=== PATIENT | male | born 1985 ===

== ENCOUNTER 2017-03-16 12:40 | Inpatient (IN) | payer BC ==
[2017-03-16 13:50] LABS: BASO # 0.1 K/uL (0.0-0.2); BASO % 0.9 % (0.0-2.0); EOS # 0.3 K/uL (0.0-0.7); EOS % 4.1 % (0.0-4.0); HEMATOCRIT 45.2 % (35.0-51.0); LYMPH # 1.1 K/uL (1.0-4.3); MEAN CELL VOLUME 89.3 fl (80.0-94.0); MEAN CORPUSCULAR HEMOGLOBIN 30.3 pg (27.0-31.0); MEAN PLATELET VOLUME 7.5 fl (7.2-11.7); MONO # 0.4 K/uL (0.0-0.8); MONO % 6.1 % (0.0-10.0); NEUT # 4.8 K/uL (1.8-7.0); NEUT % 72.9 % (50.0-75.0); RED CELL DISTRIBUTION WIDTH 12.6 % (11.5-14.5); WHITE BLOOD COUNT 6.6 K/uL (4.8-10.8)
[2017-03-16] MEDS ORDERED: Albuterol 0.083% Inhal Sol (2.5 mg/3 mL) UD INH STA (13:50)
[2017-03-16] MEDS ORDERED: Albuterol 0.083% Inhal Sol (2.5 mg/3 mL) UD ONE (13:55)
--- NOTE | 2017-03-16 13:56 | ED PDOC ---
HPI: SOB/CHF/COPD Time Seen by Provider: 03/16/17 12:59 Chief Complaint (Nursing): Shortness Of Breath History Per: Patient History/Exam Limitations: no limitations Onset/Duration Of Symptoms: Gradual (2 weeks), Worse Since (yesterday) Current Symptoms Are (Timing): Still Present Initiating Event: Upper Respiratory Illness Quality: Dull Severity: Moderate Associated Symptoms: Sweating (night sweats), Chest Pain, Bloody Cough (trace), Productive Cough (yellow). denies: Fever, Chills, Heart Racing, Leg/Calf Pain, Ankle/Leg Swelling, Dizziness, Light-headedness, Anxiety, Tingling In Hands Or Face, Other Recently: Treated By A Physician (sent to ed for eval) Additional History Per: Patient Additional Complaint(s): Pt sent by pmd for evaluation of sob, pt states has taken multiple flights across the [place] this month. Denies fever/chills. + productive cough yellow and red tinged. c/o throat/chest and upper back pain. approx 2 weeks ago received albuterol, steroids and antibiotics with no mild relieft. Past Medical History Reviewed: Historical Data, Nursing Documentation, Vital Signs Vital Signs: Last Vital Signs Temp 99.1 F 03/16/17 12:50 Pulse 95 H 03/16/17 12:50 Resp 18 03/16/17 13:11 BP 129/88 03/16/17 12:50 Pulse Ox 99 03/16/17 13:59 - Medical History PMH: Asthma, Bronchitis Denies: Chronic Kidney Disease - Family History Family History: States: Unknown Family Hx - Living Arrangements Living Arrangements: With Family - Social History Current smoker - smoking cessation education provided: No - Allergies Allergies/Adverse Reactions: Allergies Allergy/AdvReac Type Severity Reaction Status Date / Time No Known Allergies Allergy Verified 03/16/17 12:50 Wells Criteria for PE - Wells Criteria for Pulmonary Embolism Clinical Signs and Symptoms of DVT: No P.E is #1 Diagnosis, or Equally Likely: No Heart Rate >100: No Immobilization at least 3 days;Surgery previous 4 weeks: No Previous, objectively diagnosed PE or DVT: No Hemoptysis: Yes Malignancy w/treatment within 6 months, or palliative: No Total Score: 1 Review of Systems ROS Statement: Except As Marked, All Systems Reviewed And Found Negative Constitutional: Negative for: Fever, Chills Cardiovascular: Positive for: Chest Pain. Negative for: Palpitations, Edema, Light Headedness Respiratory: Positive for: Cough, Shortness of Breath, Hemoptysis, Wheezing. Negative for: Pleuritic Pain, Sputum Gastrointestinal: Negative for: Nausea, Vomiting, Abdominal Pain Neurological: Negative for: Weakness, Numbness Physical Exam - Reviewed Nursing Documentation Reviewed: Yes Vital Signs Reviewed: Yes - Physical Exam Appears: Positive for: Uncomfortable Head Exam: Positive for: ATRAUMATIC, NORMAL INSPECTION, NORMOCEPHALIC Eye Exam: Positive for: Normal appearance, EOMI, PERRL ENT: Positive for: Pharynx Is (clear,mmm) Neck: Positive for: Normal, Painless ROM, Supple Cardiovascular/Chest: Positive for: Regular Rate, Rhythm, Chest Non Tender. Negative for: Edema, Murmur, Bradycardia, Tachycardia Respiratory: Positive for: Decreased Breath Sounds (mild), Wheezing (mild scattered). Negative for: Accessory Muscle Use, Crackles, Rales, Rhonchi, Stridor, Respiratory Distress Gastrointestinal/Abdominal: Positive for: Normal Exam, Bowel Sounds, Soft. Negative for: Tenderness Back: Positive for: Normal Inspection Extremity: Positive for: Normal ROM. Negative for: Tenderness, Pedal Edema, Calf Tenderness, Deformity, Swelling Neurologic/Psych: Positive for: Alert, credit collector II-XII, Oriented, Mood/Affect (calm) . Negative for: Motor/Sensory Deficits - Laboratory Results Result Diagrams: 03/16/17 13:40 03/16/17 13:40 - ECG ECG: Positive for: Interpreted By [facility] ECG Rhythm: Positive for: Normal QRS, Normal ST Segment, Sinus Rhythm. Negative for: ST/T Changes Interpretation Of Abn EKG: rate of 81, no evidence of ischemia O2 Sat by Pulse Oximetry: 99 Pulse Ox Interpretation: Normal - Radiology X-Ray: Interpreted by [facility] X-Ray Interpretation: Infiltrates (small in lll) - Progress ED Course And Treament: seen by dr singh in the ed, will admit to med surg for clinical pna that failed outpt treatment. cta neg for pe given pt high clinical suspicion. will also r/o tb pt agree's with plan. Re-evaluation Time: 15:00 Condition: Improved Disposition - Clinical Impression Clinical Impression: Pneumonia - Patient ED Disposition Is Patient to be Admitted: Yes Counseled Patient/Family Regarding: Studies Performed, Diagnosis - Disposition Disposition Time: 15:00 Condition: GOOD Forms: [employer] (Malay) - Pt Status Changed To: Hospital Disposition Of: Inpatient - Admit Certification Admit to Inpatient:: After my assessment, the patient will require hospitalization for at least two midnights. This is because of the severity of symptoms shown, intensity of services needed, and/or the medical risk in this patient being treated as an outpatient. - POA Present On Arrival: None
[2017-03-16 14:01] LABS: ALB/GLOB RATIO 1.3 (1.0-2.1); ALKALINE PHOSPHATASE 56 U/L (38-126); ALT/SGPT 40 U/L (21-72); AST/SGOT 69 U/L (17-59); BILIRUBIN,TOTAL 0.7 mg/dl (0.2-1.3); BLOOD UREA NITROGEN 21 mg/dl (9-20); CALCIUM 10.2 mg/dL (8.4-10.2); CARBON DIOXIDE 30 mmol/L (22-30); CHLORIDE 98 mmol/L (98-107); GFR AFRICAN-AMERICAN > 60; GLUCOSE,RANDOM 102 mg/dL (75-110); SODIUM 140 mmol/l (132-148); TOTAL PROTEIN 8.7 G/DL (6.3-8.2)
[2017-03-16 14:08] LABS: PARTIAL THROMBOPLASTIN TIME 27.9 Seconds (25.6-37.1)
--- NOTE | 2017-03-16 14:26 | RAD ---
HISTORY: COMPARISON: No prior. TECHNIQUE: Chest PA and lateral FINDINGS: LINES AND TUBES: None. LUNG AND PLEURA: The lungs are well inflated. There is focal ill-defined airspace disease in the left lower lobe. HEART AND MEDIASTINUM: The heart is not enlarged. The hilar and mediastinal contours are within normal limits. SKELETAL STRUCTURES: The bony structures are within normal limits for the patient's age. VISUALIZED UPPER ABDOMEN: Normal. OTHER FINDINGS: None. IMPRESSION: Suspect left lower lobe pneumonia. Follow-up after medical management is recommended to ensure complete resolution.
[2017-03-16] MEDS ORDERED: Strong Iodine Topical Sol. 5%-10% PO STA (15:13)
--- NOTE | 2017-03-16 15:23 | CT ---
PROCEDURE: CT Chest with contrast (Pulmonary Angiogram) HISTORY: cp r/o pe COMPARISON: Chest radiographs 03/16/2017. TECHNIQUE: Axial computed tomography images were obtained of the chest in the pulmonary arterial phase of enhancement. Coronal and sagittal reformatted images were created and reviewed. Intravenous contrast dose: Omnipaque 300, 100 cc. Radiation dose: Total exam DLP = 429 mGy-cm. This CT exam was performed using one or more of the following dose reduction techniques: Automated exposure control, adjustment of the mA and/or kV according to patient size, and/or use of iterative reconstruction technique. FINDINGS: PULMONARY ARTERIES: Unremarkable. No pulmonary embolism. AORTA: No acute findings. No thoracic aortic aneurysm. LUNGS: Unremarkable. No nodule, mass or pulmonary consolidation. PLEURAL SPACES: Unremarkable. No effusion or pneuomothorax. HEART: Unremarkable. No cardiomegaly. No significant pericardial effusion. LYMPH NODES: No lymphadenopathy. BONES, CHEST WALL: Unremarkable. No fracture or destructive lesion OTHER FINDINGS: Limited imaging through the upper abdomen appears unremarkable. IMPRESSION: Unremarkable CT pulmonary angiogram. No pulmonary embolus. No definite acute pulmonary findings with cardiovascular anatomy appearing unremarkable grossly. Findings reviewed and discussed with Dr. Mendiola.
[2017-03-16] MEDS ORDERED: Iohexol 300 50 ML ONE (15:24)
[2017-03-16] MEDS ORDERED: Sodium Chloride 0.9% 50 ML IV ONE (15:24)
[2017-03-16] MEDS ORDERED: cefTRIAXone (Rocephin) 1 gm Inj ONE (16:11)
[2017-03-16] MEDS ORDERED: Albuterol 0.083% Inhal Sol (2.5 mg/3 mL) UD INH PRN (20:07)
[2017-03-16] MEDS ORDERED: Sodium Chloride 3% for Inhalation 4 ML VIAL.NEB IH PRN (20:08)
[2017-03-16] MEDS: Benzocaine/Menthol (Cepacol) Lozenge PO PRN (22:54)
--- NOTE | 2017-03-17 01:14 | US ---
EXAM: US Duplex Bilateral Lower Extremity Veins EXAM DATE/TIME: 03/16/2017 8:09 PM CLINICAL HISTORY: 31 years old, male; Abnormal findings; Abnormal lab test; Other: See requisition form; Prior surgery; Surgery date: 6+ months; Additional info: R/O dvt TECHNIQUE: Real-time ultrasound scan of the veins of the bilateral lower extremities with color Doppler flow, spectral waveform analysis and compression. COMPARISON: There are no prior studies for comparison. FINDINGS: Right lower extremity: Common femoral, superficial femoral, popliteal and posterior tibial veins were evaluated. All veins examined are compressible. There are no intraluminal filling defects. There is expected blood flow on Doppler imaging. There is change in waveform with augmentation. Left lower extremity: Common femoral, superficial femoral, popliteal and posterior tibial veins were evaluated. All veins examined are compressible. There are no intraluminal filling defects. There is expected blood flow on Doppler imaging. There is change in waveform with augmentation. Impression: No deep venous thrombosis in the visualized vascular segments of the lower extremities
[2017-03-17 05:58] LABS: HEMATOCRIT 44.3 % (35.0-51.0); MEAN CORPUSCULAR HGB CONC 33.3 g/dL (33.0-37.0); RED CELL DISTRIBUTION WIDTH 12.6 % (11.5-14.5); WHITE BLOOD COUNT 5.5 K/uL (4.8-10.8)
[2017-03-17 06:09] LABS: BLOOD UREA NITROGEN 23 mg/dl (9-20); CALCIUM 9.9 mg/dL (8.4-10.2); CARBON DIOXIDE 27 mmol/L (22-30); CHLORIDE 101 mmol/L (98-107); GFR AFRICAN-AMERICAN > 60; GLUCOSE,RANDOM 107 mg/dL (75-110); SODIUM 139 mmol/l (132-148)
--- NOTE | 2017-03-17 08:55 | CP.PCM.CON ---
History of Present Illness - History of Present Illness History of Present Illness: This 31 year old male, never smoker, presented to the emergency department because of cough, SOB, sweats and chest/abdomen pains. He has been ill for approximately one month with cough. There has been dark yellow sputum which, on one occasion was thought to possibly have a small amount of blood admixed. He was seen in an urgent care center in [place] and given antibiotic, prednisone and albuterol inhaler for 'asthmatic bronchitis'. He does admit that he is feeling a little better after this treatment and the sputum has become manager tax in color. He does complain of poor appetite with the current illness and there has been some weight loss. He is awakened at night because of the coughing and associated chest/abdomen pain with profuse sweating recently. He has longstanding nasal congestion and possibly sinus disease and has been using a nasal spray for the past year. He has no prior history of asthma or pneumonia. There is a history of asthmatic bronchitis in his sister who was also treated with corticosteroids. A chest x-ray done in the ER did show a possible LLL early infiltrate, but CTA of the chest did NOT show any areas of infiltrate, no effusions, no adenopathy, but there was bronchial wall cuffing noted. He does have seasonal allergies and there is a cat in the home which he claims does not cause him to have any allergy symptoms. Review of Systems - Review of Systems All systems: reviewed and no additional remarkable complaints except - Constitutional Constitutional: Headache, Night Sweats, Weight Loss - EENT Nose/Mouth/Throat: Nasal Congestion, Change in Voice, Sore Throat - Respiratory Respiratory: Cough, Dyspnea, Wheezing, Pain on Inspiration, Change in Mucous Color, Pain with Coughing - Gastrointestinal Gastrointestinal: Belching Past Patient History - Past Medical History & Family History Past Medical History?: Yes Pertinent Family History: Crohn's disease, congenital heart disease, 'asthmatic bronchitis' - Past Social History Smoking Status: Never Smoked Chewing Tobacco Use: No Cigar Use: No Alcohol: Social Drugs: Denies Home Situation {Lives}: With Family - CARDIAC Hx Cardiac Disorders: No - PULMONARY Hx Asthma: Yes Hx Bronchitis: Yes - NEUROLOGICAL Hx Neurological Disorder: No - HEENT Hx Sinusitis: Yes Other/Comment: Chronic nasal congestion - RENAL Hx Chronic Kidney Disease: No - ENDOCRINE/METABOLIC Hx Endocrine Disorders: No - HEMATOLOGICAL/ONCOLOGICAL Hx Blood Disorders: No Hx Human Immunodeficiency Virus (HIV): No - INTEGUMENTARY Hx Dermatological Problems: No - MUSCULOSKELETAL/RHEUMATOLOGICAL Hx Musculoskeletal Disorders: No Hx Falls: No - GASTROINTESTINAL Hx Gastrointestinal Disorders: No - GENITOURINARY/GYNECOLOGICAL Hx Genitourinary Disorders: No - PSYCHIATRIC Hx Psychophysiologic Disorder: No Hx Substance Use: No - SURGICAL HISTORY Hx Surgeries: Yes Other/Comment: Torn Meniscus - ANESTHESIA Hx Anesthesia: Yes Hx Anesthesia Reactions: No Hx Malignant Hyperthermia: No Meds Allergies/Adverse Reactions: Allergies Allergy/AdvReac Type Severity Reaction Status Date / Time No Known Allergies Allergy Verified 03/16/17 12:50 - Medications Medications: Current Medications Albuterol Sulfate (Albuterol 0.083% Inhal [place] (2.5 Mg/3 Ml) Ud) 2.5 mg INH RQ6 PRN PRN Reason: Shortness of Breath Benzocaine/Menthol (Cepacol Sore Throat) 1 emiliano PO Q2 PRN PRN Reason: Sore Throat Last Admin: 03/16/17 22:54 Dose: 1 emiliano Enoxaparin Sodium (Lovenox) 40 mg SC DAILY CORY PRN Reason: Protocol Fluticasone Propionate (Flonase) 2 spr KOFFI DAILY CORY Azithromycin 500 mg/ Sodium (Chloride) 250 mls @ 250 mls/hr IVPB DAILY CORY Ceftriaxone Sodium 1 gm/ (Sodium Chloride) 100 mls @ 100 mls/hr IVPB DAILY CORY Pantoprazole Sodium (Protonix Inj) 40 mg IVP DAILY CORY Physical Exam - Additional Findings Additional findings: Well nourished, well developed, nasal intonation of voice. Neck is supple, trachea is midline. No visble JVD. No carotid bruit. EAC's patent, TM's intact. Conjunctivae pink, no scleral icterus. No tenderness on pressure over maxillary sinuses. Nasal passages congested/obstructed. Pharynx is pink and moist w/o exudate. Small supraclavicular LN's on the right. No other adenopathy. No myoid edema, no cyanosis, no rashes or ecchymosis. Peripheral pulses intact. No dullness on chest percussion, normal VTF. + cough upon deep inspiration. No rales or wheezes heard. No bronchial breath sounds or egophony. No rhonchi or rub appreciated. Heart sounds well heard, regular, no murmur. Abdomen is soft and non-tender w/o HSM. Normal BS. Results - Vital Signs Recent Vital Signs: Last Vital Signs Temp 97.6 F 03/17/17 08:00 Pulse 83 03/17/17 08:00 Resp 18 03/17/17 08:00 BP 106/67 03/17/17 08:00 Pulse Ox 98 03/17/17 08:00 - Labs Result Diagrams: 03/17/17 05:20 03/17/17 05:20 Labs: Laboratory Results - last 24 hr 03/16/17 03/16/17 03/16/17 20:05 20:45 22:48 WBC RBC Hgb Hct MCV MCH MCHC RDW Plt Count Sodium Potassium Chloride Carbon Dioxide Anion Gap BUN Creatinine Est GFR ( Amer) Est GFR (Non-Af Amer) Random Glucose Calcium TSH 3rd Generation 2.07 Urine Opiates Screen Negative Urine Methadone Screen Negative Ur Barbiturates Screen Negative Ur Phencyclidine Scrn Negative Ur Amphetamines Screen Negative U Benzodiazepines Scrn Negative U Oth Cocaine Metabols Negative U Cannabinoids Screen Negative HIV-1 Ab Rapid Screen Non reactive 03/17/17 03/17/17 05:20 05:20 WBC 5.5 RBC 4.93 Hgb 14.8 Hct 44.3 MCV 90.0 MCH 30.0 MCHC 33.3 RDW 12.6 Plt Count 213 Sodium 139 Potassium 4.0 Chloride 101 Carbon Dioxide 27 Anion Gap 16 BUN 23 H Creatinine 0.8 Est GFR ( Amer) > 60 Est GFR (Non-Af Amer) > 60 Random Glucose 107 Calcium 9.9 TSH 3rd Generation Urine Opiates Screen Urine Methadone Screen Ur Barbiturates Screen Ur Phencyclidine Scrn Ur Amphetamines Screen U Benzodiazepines Scrn U Oth Cocaine Metabols U Cannabinoids Screen HIV-1 Ab Rapid Screen Assessment & Plan (1) Bronchospasm with bronchitis, acute Status: Acute Priority: High (2) Recurrent maxillary sinusitis Status: Chronic Priority: High (3) Upper airway cough syndrome Status: Acute Priority: High - Assessment and Plan (Free Text) Plan: Continue antibiotic therapy. Cough suppression. Aerosol therapy with albuterol. CT paranasal sinuses. ENT consult. Continue sputum collection. Doubt this reflects tuberculosis.
[2017-03-17] MEDS ORDERED: Albuterol 0.083% Inhal Sol (2.5 mg/3 mL) UD INH PRN (09:12)
[2017-03-17] MEDS: Azithromycin 500 MG in Sodium Chloride 0.9% 250 ML IVPB SCH (10:38)
[2017-03-17] MEDS: Enoxaparin 40 mg Syringe SC SCH (10:40)
[2017-03-17] MEDS: Benzocaine/Menthol (Cepacol) Lozenge PO PRN (10:40)
[2017-03-17] MEDS: Albuterol 0.083% Inhal Sol (2.5 mg/3 mL) UD INH SCH ×3 (11:28→19:28)
--- NOTE | 2017-03-17 11:31 | CP.PCM.HP ---
History of Present Illness - History of Present Illness History of Present Illness: Patient is 31 y/o gentleman presented in ER with the hx of cough, chills, fever with night sweats,productive cough x 3 weeks. nausea, vomiting. He was treated with serval antibx and he was seen as OP by several physicians. His condition did not improve on the present broad spectrum antibx. He still c/o severe cough and dyspnea. sore throat, rhinorrhea, headaches, patient anxious because no improvement with rx and actually. In ER an initial CXR reveled a possible cavitary lesion. The liver enzymes were elevated and the serum protein elevated. A test for TB was performed and the patient is now on respiratory isolation. 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 It is crucially necessary to r/o TB. The EKG is abnormal and there is a possible enlargement of the PA, will follow an ECHO for possible PAH. All serology and rheumatology studies in progress. A CT scan of the sinus pending. Present on Admission - Present on Admission Any Indicators Present on Admission: No Review of Systems - Constitutional Constitutional: As Per HPI - EENT Eyes: As Per HPI Nose/Mouth/Throat: As Per HPI - Cardiovascular Cardiovascular: As Per HPI - Respiratory Respiratory: As Per HPI - Gastrointestinal Gastrointestinal: As Per HPI - Genitourinary Genitourinary: As Per HPI - Musculoskeletal Musculoskeletal: As Per HPI - Neurological Neurological: As Per HPI Past Patient History - Past Medical History & Family History Past Medical History?: Yes - Past Social History Smoking Status: Never Smoked Chewing Tobacco Use: No Cigar Use: No Alcohol: Social Drugs: Denies Home Situation {Lives}: With Family - CARDIAC Hx Cardiac Disorders: No - PULMONARY Hx Asthma: Yes Hx Bronchitis: Yes - NEUROLOGICAL Hx Neurological Disorder: No - HEENT Hx Sinusitis: Yes Other/Comment: Chronic nasal congestion - RENAL Hx Chronic Kidney Disease: No - ENDOCRINE/METABOLIC Hx Endocrine Disorders: No - HEMATOLOGICAL/ONCOLOGICAL Hx Blood Disorders: No Hx Human Immunodeficiency Virus (HIV): No - INTEGUMENTARY Hx Dermatological Problems: No - MUSCULOSKELETAL/RHEUMATOLOGICAL Hx Musculoskeletal Disorders: No Hx Falls: No - GASTROINTESTINAL Hx Gastrointestinal Disorders: No - GENITOURINARY/GYNECOLOGICAL Hx Genitourinary Disorders: No - PSYCHIATRIC Hx Psychophysiologic Disorder: No Hx Substance Use: No - SURGICAL HISTORY Hx Surgeries: Yes Other/Comment: Torn Meniscus - ANESTHESIA Hx Anesthesia: Yes Hx Anesthesia Reactions: No Hx Malignant Hyperthermia: No Meds Allergies/Adverse Reactions: Allergies Allergy/AdvReac Type Severity Reaction Status Date / Time No Known Allergies Allergy Verified 03/16/17 12:50 Physical Exam - Constitutional Additional comments: Anxious - Head Exam Head Exam: ATRAUMATIC, NORMAL INSPECTION, NORMOCEPHALIC - Eye Exam Additional comments: Congestion in the nostrils - Neck Exam Neck exam: Positive for: Full Rom - Respiratory Exam Respiratory Exam: Decreased Breath Sounds, Rhonchi - Cardiovascular Exam Cardiovascular Exam: REGULAR RHYTHM, +S1, +S2 - GI/Abdominal Exam GI & Abdominal Exam: Normal Bowel Sounds - Extremities Exam Extremities exam: Positive for: normal inspection - Back Exam Back exam: NORMAL INSPECTION - Neurological Exam Neurological exam: Alert, CN II-XII Intact, Oriented x3 - Psychiatric Exam Psychiatric exam: Anxious - Skin Skin Exam: Normal Color Results - Vital Signs Recent Vital Signs: Last Vital Signs Temp 97.6 F 03/17/17 08:00 Pulse 83 03/17/17 08:00 Resp 18 03/17/17 08:00 BP 106/67 03/17/17 08:00 Pulse Ox 98 03/17/17 08:00 - Labs Result Diagrams: 03/17/17 05:20 03/17/17 05:20 Labs: Laboratory Results - last 24 hr 03/16/17 03/16/17 03/16/17 20:05 20:45 22:48 WBC RBC Hgb Hct MCV MCH MCHC RDW Plt Count Sodium Potassium Chloride Carbon Dioxide Anion Gap BUN Creatinine Est GFR ( Amer) Est GFR (Non-Af Amer) Random Glucose Calcium TSH 3rd Generation 2.07 Urine Opiates Screen Negative Urine Methadone Screen Negative Ur Barbiturates Screen Negative Ur Phencyclidine Scrn Negative Ur Amphetamines Screen Negative U Benzodiazepines Scrn Negative U Oth Cocaine Metabols Negative U Cannabinoids Screen Negative HIV-1 Ab Rapid Screen Non reactive 03/17/17 03/17/17 05:20 05:20 WBC 5.5 RBC 4.93 Hgb 14.8 Hct 44.3 MCV 90.0 MCH 30.0 MCHC 33.3 RDW 12.6 Plt Count 213 Sodium 139 Potassium 4.0 Chloride 101 Carbon Dioxide 27 Anion Gap 16 BUN 23 H Creatinine 0.8 Est GFR ( Amer) > 60 Est GFR (Non-Af Amer) > 60 Random Glucose 107 Calcium 9.9 TSH 3rd Generation Urine Opiates Screen Urine Methadone Screen Ur Barbiturates Screen Ur Phencyclidine Scrn Ur Amphetamines Screen U Benzodiazepines Scrn U Oth Cocaine Metabols U Cannabinoids Screen HIV-1 Ab Rapid Screen Assessment & Plan (1) Bronchospasm with bronchitis, acute Status: Acute Priority: High (2) Pneumonia Status: Suspected (3) Upper airway cough syndrome Status: Acute Priority: High (4) Recurrent maxillary sinusitis Status: Chronic Priority: High (5) Anxiety Status: Acute (6) Hyperproteinemia Status: Acute (7) PAH (pulmonary artery hypertension) Status: Suspected - Assessment and Plan (Free Text) Plan: W/U in progress
--- NOTE | 2017-03-17 13:30 | CT ---
PROCEDURE: CT SINUSES WITHOUT CONTRAST HISTORY: r/o sinusitis COMPARISON: None TECHNIQUE: Contiguous axial CT images of the paranasal sinuses were obtained. Coronal and sagittal reformats were generated. Radiation dose: Total exam DLP = 492.24 MGy-cm. This CT exam was performed using one or more of the following dose reduction techniques: Automated exposure control, adjustment of the mA and/or kV according to patient size, and/or use of iterative reconstruction technique. FINDINGS: FRONTAL SINUSES: The right frontal sinus is hypoplastic. The left frontal sinus is well developed. There is no mucosal thickening or fluid. ETHMOID SINUSES: The ethmoid sinuses are well developed. There is scattered mucosal thickening in the anterior ethmoid air cells. SPHENOID SINUSES: The sphenoid sinus is well developed. No mucosal thickening or fluid. There is pneumatized a ching of the left lateral recess of the sphenoid sinus. MAXILLARY SINUSES: Maxillary sinuses are well developed. There is mild polypoid mucosal thickening in the maxillary sinuses. There are retention cysts/polyps in the maxillary sinuses. SINUS DRAINAGE: Obstruction of bilateral ostiomeatal complexes, frontal recesses and sphenoethmoid recesses clear. NASAL SEPTUM: Mild deviation to the left. No destructive lesion. There is mucosal thickening in the nasal cavity consistent with chronic rhinitis. SKULL BASE: Unremarkable. TEMPORAL BONES: The visualized tympanic cavities and mastoid grossly unremarkable. OTHER FINDINGS: There is mild adenoidal hypertrophy. IMPRESSION: Chronic maxillary and anterior ethmoid sinusitis. No evidence of acute sinusitis. Chronic rhinitis. Mild deviation of the nasal septum to the left
--- NOTE | 2017-03-17 14:51 | CP.PCM.CON ---
History of Present Illness - History of Present Illness History of Present Illness: 31 year old male admitted because of cough, SOB, sweats and chest/abdomen pains. He has been ill for approximately one month with cough on and off and has been [place] the [place] There has been dark yellow sputum which He was seen in an urgent care center in [place] and given antibiotic, prednisone and albuterol inhaler for 'asthmatic bronchitis'. . He does complain of poor appetite with the current illness and there has been some weight loss. He has longstanding nasal congestion and sinus disease and has been using a nasal spray for the past year. A chest x-ray done in the ER did show a possible LLL early infiltrate, Review of Systems - Constitutional Constitutional: As Per HPI, Anorexia, Chills, Fever, Malaise, Weight Loss - EENT Eyes: absent: As Per HPI, Blind Spots, Blurred Vision, Change in Vision, Decreased Night Vision, Diplopia, Discharge, Dry Eye, Exophthalmos, Floaters, Irritation, Itchy Eyes, Loss of Peripheral Vision, Pain, Photophobia, Requires Corrective Lenses, Sees Flashes, Spots in Vision, Tunnel Vision, Other Visual Disturbances, Loss of Vision, Other Ears: absent: As Per HPI, Decreased Hearing, Ear Discharge, Ear Pain, Tinnitus, Abnormal Hearing, Disequilibrium, Dizziness, Other Nose/Mouth/Throat: As Per HPI, Nasal Congestion, Sinus Pressure - Cardiovascular Cardiovascular: absent: As Per HPI, Acrocyanosis, Chest Pain, Chest Pain at Rest , Chest Pain with Activity, Claudication, Diaphoresis, Dyspnea, Dyspnea on Exertion, Edema, Irregular Heart Rhythm, Pain Radiating to Arm/Neck/Jaw, Leg Edema, Leg Ulcers, Lightheadedness, Orthopnea, Palpitations, Paroxysmal Nocturnal Dyspnea, Pedal Edema, Radiating Pain, Rapid Heart Rate, Slow Heart Rate, Syncope, Other - Respiratory Respiratory: As Per HPI - Gastrointestinal Gastrointestinal: absent: As Per HPI, Abdominal Pain, Belching, Bloating, Change in Bowel Habits, Change in Stool Character, Coffee Ground Emesis, Constipation, Cramping, Diarrhea, Dyspepsia, Dysphagia, Early Satiety, Excessive Flatus, Fecal Incontinence, Heartburn, Hematemesis, Hematochezia, Loose Stools, Melena, Nausea, Odynophagia, Temesmus, Vomiting, Other - Genitourinary Genitourinary: absent: As Per HPI, Change in Urinary Stream, Difficulty Urinating, Dysuria, Flank Pain, Hematuria, Pyuria, Nocturia, Urinary Incontinence, Urinary Frequency, Urinary Hesitance, Urinary Urgency, Voiding Freq/Small Amts, Freq UTI, Hx Renal/Bladder Calculi, Hx /Renal Surgery, Bladder Distension, Other - Musculoskeletal Musculoskeletal: absent: As Per HPI, Abnormal Gait, Arthralgias, Atrophy, Back Pain, Deformity, Joint Swelling, Limited Range of Motion, Loss of Height, Muscle Cramps, Muscle Weakness, Myalgias, Neck Pain, Numbness, Radiating Pain into Limb, Stiffness, Tingling, Other - Integumentary Integumentary: absent: As Per HPI, Acne, Alopecia, Bleeding Lesions, Change in Hair, Change in Nails, Change in Pigmentation, Changing Lesions, Dry Skin, Erythema, Furuncle, Hirsutism, Lesions, New Lesions, Non-Healing Lesions, Photosensitivity, Pruritus, Rash, Skin Pain, Skin Ulcer, Sores, Striae, Swelling , Unusual Bruising, Wounds, Jaundice, Other - Neurological Neurological: absent: As Per HPI, Abnormal Gait, Abnormal Hearing, Abnormal Movements, Abnormal Speech, Behavioral Changes, Burning Sensations, Confusion, Convulsions, Disequilibrium, Dizziness, Numbness, Focal Weakness, Frequent Falls , Headaches, Lack of Coordination, Loss of Vision, Memory Loss, Paresthesias, Radicular Pain, Restless Legs, Sensory Deficit, Syncope, Tingling, Tremor, Vertigo, Weakness, Other Visual Disturbances, Other - Psychiatric Psychiatric: absent: As Per HPI, Abnormal Sleep Pattern, Anhedonia, Anxiety, Auditory Hallucinations, Behavioral Changes, Change in Appetite, Change in Libido, Confusion, Depression, Difficulty Concentrating, Hallucinations, Homicidal Ideation, Hopelessness, Irritability, Memory Loss, Mood Swings, Panic Attacks, Paranoia, Suicidal Ideation, Visual Hallucinations, Tactile Hallucinations, Other - Endocrine Endocrine: absent: As Per HPI, Change in Body Appearance, Change in Libido, Cold Intolorance, Deepening of Voice, Excessive Sweating, Fatigue, Flushing, Heat Intolorance, Increase in Ring/Shoe/Hat Size, Palpitations, Polydipsia, Polyphagia, Polyuria, Other - Hematologic/Lymphatic Hematologic: absent: As Per HPI, Easy Bleeding, Easy Bruising, Lymphadenopathy, Other Past Patient History - Past Medical History & Family History Past Medical History?: Yes - Past Social History Smoking Status: Never Smoked Chewing Tobacco Use: No Cigar Use: No Alcohol: Social Drugs: Denies Home Situation {Lives}: With Family - CARDIAC Hx Cardiac Disorders: No - PULMONARY Hx Asthma: Yes Hx Bronchitis: Yes - NEUROLOGICAL Hx Neurological Disorder: No - HEENT Hx Sinusitis: Yes Other/Comment: Chronic nasal congestion - RENAL Hx Chronic Kidney Disease: No - ENDOCRINE/METABOLIC Hx Endocrine Disorders: No - HEMATOLOGICAL/ONCOLOGICAL Hx Blood Disorders: No Hx Human Immunodeficiency Virus (HIV): No - INTEGUMENTARY Hx Dermatological Problems: No - MUSCULOSKELETAL/RHEUMATOLOGICAL Hx Musculoskeletal Disorders: No Hx Falls: No - GASTROINTESTINAL Hx Gastrointestinal Disorders: No - GENITOURINARY/GYNECOLOGICAL Hx Genitourinary Disorders: No - PSYCHIATRIC Hx Psychophysiologic Disorder: No Hx Substance Use: No - SURGICAL HISTORY Hx Surgeries: Yes Other/Comment: Torn Meniscus - ANESTHESIA Hx Anesthesia: Yes Hx Anesthesia Reactions: No Hx Malignant Hyperthermia: No Meds Allergies/Adverse Reactions: Allergies Allergy/AdvReac Type Severity Reaction Status Date / Time No Known Allergies Allergy Verified 03/16/17 12:50 - Medications Medications: Current Medications Albuterol Sulfate (Albuterol 0.083% Inhal Mecca (2.5 Mg/3 Ml) Ud) 2.5 mg INH RQ4 PRN PRN Reason: Shortness of Breath Albuterol Sulfate (Albuterol 0.083% Inhal Mecca (2.5 Mg/3 Ml) Ud) 2.5 mg INH RQID [facility] Benzocaine/Menthol (Cepacol Sore Throat) 1 emiliano PO Q2 PRN PRN Reason: Sore Throat Last Admin: 03/17/17 10:40 Dose: 1 emiliano Benzonatate (Tessalon Perles) 200 mg PO Q8H [facility] Last Admin: 03/17/17 10:39 Dose: 200 mg Enoxaparin Sodium (Lovenox) 40 mg SC DAILY [facility] PRN Reason: Protocol Last Admin: 03/17/17 10:40 Dose: 40 mg Fluticasone Propionate (Flonase) 2 spr KOFFI DAILY [facility] Last Admin: 03/17/17 10:40 Dose: 2 spr Azithromycin 500 mg/ Sodium (Chloride) 250 mls @ 250 mls/hr IVPB DAILY [facility] Last Admin: 03/17/17 10:38 Dose: 250 mls/hr Ceftriaxone Sodium 1 gm/ (Sodium Chloride) 100 mls @ 100 mls/hr IVPB DAILY [facility] Last Admin: 03/17/17 10:39 Dose: 100 mls/hr Ibuprofen (Motrin Tab) 600 mg PO Q6 PRN PRN Reason: Headache Pantoprazole Sodium (Protonix Inj) 40 mg IVP DAILY [facility] Last Admin: 03/17/17 10:41 Dose: 40 mg Physical Exam - Constitutional Appears: Non-toxic, Chronically Ill - Head Exam Head Exam: ATRAUMATIC, NORMAL INSPECTION, NORMOCEPHALIC - Eye Exam Eye Exam: EOMI, PERRL. absent: Scleral icterus - ENT Exam ENT Exam: Mucous Membranes Dry, Normal External Ear Exam - Neck Exam Neck exam: Negative for: Lymphadenopathy, Thyromegaly - Respiratory Exam Respiratory Exam: Decreased Breath Sounds, Rhonchi - Cardiovascular Exam Cardiovascular Exam: REGULAR RHYTHM, +S1, +S2 - GI/Abdominal Exam GI & Abdominal Exam: Diminished Bowel Sounds, Soft. absent: Tenderness - Rectal Exam Rectal Exam: Deferred - Exam Exam: NORMAL INSPECTION - Extremities Exam Extremities exam: Positive for: pedal pulses present. Negative for: calf tenderness, pedal edema, tenderness - Back Exam Back exam: absent: CVA tenderness (L), CVA tenderness (R) - Neurological Exam Neurological exam: Alert, CN II-XII Intact, Oriented x3, Reflexes Normal - Psychiatric Exam Psychiatric exam: Normal Mood - Skin Skin Exam: Dry Results - Vital Signs Recent Vital Signs: Last Vital Signs Temp 98.6 F 03/17/17 12:00 Pulse 88 03/17/17 12:00 Resp 18 03/17/17 12:00 BP 122/78 03/17/17 12:00 Pulse Ox 97 03/17/17 12:00 - Labs Result Diagrams: 03/17/17 05:20 03/17/17 05:20 Labs: Laboratory Results - last 24 hr 03/16/17 03/16/17 03/16/17 20:05 20:45 22:48 WBC RBC Hgb Hct MCV MCH MCHC RDW Plt Count Sodium Potassium Chloride Carbon Dioxide Anion Gap BUN Creatinine Est GFR ( Amer) Est GFR (Non-Af Amer) Random Glucose Calcium TSH 3rd Generation 2.07 Urine Opiates Screen Negative Urine Methadone Screen Negative Ur Barbiturates Screen Negative Ur Phencyclidine Scrn Negative Ur Amphetamines Screen Negative U Benzodiazepines Scrn Negative U Oth Cocaine Metabols Negative U Cannabinoids Screen Negative Hepatitis A IgM Ab Hep Bs Antigen Hep B Core IgM Ab Hepatitis C Antibody HIV-1 Ab Rapid Screen Non reactive 03/17/17 03/17/17 03/17/17 05:20 05:20 05:20 WBC 5.5 RBC 4.93 Hgb 14.8 Hct 44.3 MCV 90.0 MCH 30.0 MCHC 33.3 RDW 12.6 Plt Count 213 Sodium 139 Potassium 4.0 Chloride 101 Carbon Dioxide 27 Anion Gap 16 BUN 23 H Creatinine 0.8 Est GFR ( Amer) > 60 Est GFR (Non-Af Amer) > 60 Random Glucose 107 Calcium 9.9 TSH 3rd Generation Urine Opiates Screen Urine Methadone Screen Ur Barbiturates Screen Ur Phencyclidine Scrn Ur Amphetamines Screen U Benzodiazepines Scrn U Oth Cocaine Metabols U Cannabinoids Screen Hepatitis A IgM Ab Negative Hep Bs Antigen Negative Hep B Core IgM Ab Negative Hepatitis C Antibody Negative HIV-1 Ab Rapid Screen Assessment & Plan (1) Bronchospasm with bronchitis, acute Status: Acute Priority: High (2) Upper airway cough syndrome Status: Acute Priority: High (3) Recurrent maxillary sinusitis Status: Chronic Priority: High (4) Pneumonia Status: Suspected - Assessment and Plan (Free Text) Assessment: severe recurrent bronchospasm associated with cough and congestion r/o allergic bronchopulmonary aspergillosis sinusitis may benefit from addition of short course of steroids once cultures are back agree with ENT eval
[2017-03-18] MEDS ORDERED: Albuterol HFA 90 mcg/actuation (8 g) IH PRN (07:47)
[2017-03-18] MEDS: Albuterol 0.083% Inhal Sol (2.5 mg/3 mL) UD INH SCH ×4 (07:58→19:53)
--- NOTE | 2017-03-18 08:30 | CP.PCM.PN ---
Subjective - Date & Time of Evaluation Date of Evaluation: 03/18/17 Time of Evaluation: 08:30 - Subjective Subjective: Remains afebrile, did NOT have any sweats overnight. Vital signs are stable and he remains afebrile. Less coughing as per patient, less sputum so far this morning. No hemoptysis reported by patient. Two sputum samples obtained yesterday (AFB and C&S). CT paranasal sinuses showed significant nasal obstruction with some mild degree of sinusitis (chronic). Follow up CXR done this morning w/o any infiltrates seen. Maintain current medical regimen. Await multiple lab tests and sputum results. Objective - Vital Signs/Intake and Output Vital Signs (last 24 hours): Temp Pulse Resp BP Pulse Ox 98.3 F 76 18 111/68 99 03/18/17 08:21 03/18/17 08:21 03/18/17 08:21 03/18/17 08:21 03/18/17 08:21 Intake and Output: 03/17/17 03/18/17 23:59 11:59 Intake Total 1365 650 Output Total 1400 Balance -35 650 - Medications Medications: Current Medications Albuterol Sulfate (Albuterol 0.083% Inhal Mecca (2.5 Mg/3 Ml) Ud) 2.5 mg INH RQ4 PRN PRN Reason: Shortness of Breath Albuterol Sulfate (Albuterol 0.083% Inhal Mecca (2.5 Mg/3 Ml) Ud) 2.5 mg INH RQID [facility] Last Admin: 03/18/17 07:58 Dose: 2.5 mg Benzocaine/Menthol (Cepacol Sore Throat) 1 emiliano PO Q2 PRN PRN Reason: Sore Throat Last Admin: 03/17/17 10:40 Dose: 1 emiliano Benzonatate (Tessalon Perles) 200 mg PO Q8H [facility] Last Admin: 03/18/17 01:12 Dose: 200 mg Enoxaparin Sodium (Lovenox) 40 mg SC DAILY [facility] PRN Reason: Protocol Last Admin: 03/17/17 10:40 Dose: 40 mg Fluticasone Propionate (Flonase) 2 spr KOFFI DAILY [facility] Last Admin: 03/17/17 10:40 Dose: 2 spr Azithromycin 500 mg/ Sodium (Chloride) 250 mls @ 250 mls/hr IVPB DAILY [facility] Last Admin: 03/17/17 10:38 Dose: 250 mls/hr Ceftriaxone Sodium 1 gm/ (Sodium Chloride) 100 mls @ 100 mls/hr IVPB DAILY [facility] Last Admin: 03/17/17 10:39 Dose: 100 mls/hr Ibuprofen (Motrin Tab) 600 mg PO Q6 PRN PRN Reason: Headache Last Admin: 03/17/17 14:57 Dose: 600 mg Loratadine (Claritin) 10 mg PO DAILY [facility] Pantoprazole Sodium (Protonix Inj) 40 mg IVP DAILY [facility] Last Admin: 03/17/17 10:41 Dose: 40 mg - Labs Labs: 03/17/17 05:20 03/17/17 05:20 PT 10.4 Seconds (9.8-13.1) 03/16/17 13:40 INR 1.0 (0.9-1.2) 03/16/17 13:40 APTT 27.9 Seconds (25.6-37.1) 03/16/17 13:40 Assessment and Plan (1) Bronchospasm with bronchitis, acute Status: Acute (2) Recurrent maxillary sinusitis Status: Chronic (3) Upper airway cough syndrome Status: Acute
[2017-03-18] MEDS: Benzocaine/Menthol (Cepacol) Lozenge PO PRN (09:14)
[2017-03-18] MEDS: Azithromycin 500 MG in Sodium Chloride 0.9% 250 ML IVPB SCH (09:14)
[2017-03-18] MEDS: Enoxaparin 40 mg Syringe SC SCH (09:15)
--- NOTE | 2017-03-18 13:01 | RAD ---
HISTORY: f/u infiltrate COMPARISON: Chest radiographs 03/16/2017. TECHNIQUE: Chest PA and lateral FINDINGS: LUNGS: Hazy density inferior left lung zone is not apparent currently in the interval. No infiltrate is appreciated bilaterally. PLEURA: No significant pleural effusion identified. No pneumothorax apparent. CARDIOVASCULAR: Normal. OSSEOUS STRUCTURES: No significant abnormalities. VISUALIZED UPPER ABDOMEN: Normal. OTHER FINDINGS: None. IMPRESSION: No acute infiltrate or pleural effusion is identified bilaterally with cardiac silhouette stable and normal appearing once again. Prior left basilar hazy density is not identified currently. No infiltrate was seen on prior chest CT dated 03/16/2017.
--- NOTE | 2017-03-18 13:03 | CARD ---
APPROVED REPORT EXAM: Two-dimensional and M-mode echocardiogram with Doppler and color Doppler. Other Information Quality : GoodRhythm : NSR INDICATION Pulmonary Hypertention 2D DIMENSIONS IVSd0.86 (0.7-1.1cm)LVDd4.05 (3.9-5.9cm) LVOT Diameter2.20 (1.8-2.4cm)PWd1.32 (0.7-1.1cm) IVSs1.11 (0.8-1.2cm)LVDs3.62 (2.5-4.0cm) FS (%) 10.7 %PWs1.01 (0.8-1.2cm) M-Mode DIMENSIONS Left Atrium (MM)3.29 (2.5-4.0cm)IVSd0.88 (0.7-1.1cm) Aortic Root3.00 (2.2-3.7cm)LVDd4.76 (4.0-5.6cm) Aortic Cusp Exc.2.15 (1.5-2.0cm)PWd1.00 (0.7-1.1cm) IVSs1.35 cmFS (%) 27 % LVDs3.50 (2.0-3.8cm)PWs1.24 cm Mitral Valve MV E Kbzqwazh59.7cm/sMV DECEL [id number] A Sslpbwic20.4cm/s MV [id number]/A ratio0.9MVA (PHT)3.30cm2 TDI Lateral E' Peak V13.36cm/sMedial E' Peak V7.99cm/sE/Lateral E'3.0 E/Medial E'5.0 Pulmonary Valve PV Peak Smrmoumn22.7cm/s LEFT VENTRICLE The left ventricle is normal size. There is normal left ventricular wall thickness. The left ventricular function is normal. The left ventricular ejection fraction is 60% There is normal LV segmental wall motion. The left ventricular diastolic function is normal. No left ventricle thrombus noted on this study. There is no ventricular septal defect visualized. There is no left ventricular aneurysm. There is no mass noted in the left ventricle. RIGHT VENTRICLE The right ventricle is normal size. There is normal right ventricular wall thickness. The right ventricular systolic function is normal. ATRIA The left atrium size is normal. The right atrium size is normal. The interatrial septum is intact with no evidence for an atrial septal defect. AORTIC VALVE The aortic valve is normal in structure and function. No aortic regurgitation is present. There is no aortic valvular stenosis. There is no aortic valvular vegetation. MITRAL VALVE The mitral valve is normal in structure and function. There is no evidence of mitral valve prolapse. There is no mitral valve stenosis. There is no mitral valve regurgitation noted. TRICUSPID VALVE The tricuspid valve is normal in structure and function. There is no tricuspid valve regurgitation noted. There is no tricuspid valve prolapse or vegetation. There is no tricuspid valve stenosis. PULMONIC VALVE The pulmonary valve is normal in structure and function. There is no pulmonic valvular regurgitation. There is no pulmonic valvular stenosis. GREAT VESSELS The aortic root is normal in size. The ascending aorta is normal in size. The IVC is normal in size and collapses >50% with inspiration. PERICARDIAL EFFUSION The pericardium appears normal. There is no pleural effusion. <Conclusion> Normal Echocardiogram
--- NOTE | 2017-03-18 13:24 | CP.PCM.PN ---
Subjective - Date & Time of Evaluation Date of Evaluation: 03/18/17 Time of Evaluation: 13:26 - Subjective Subjective: General condition improving, less cough, Still waiting for sputum c/c and TB test. Serology still pending. Will continue present rx. Objective - Vital Signs/Intake and Output Vital Signs (last 24 hours): Temp Pulse Resp BP Pulse Ox 98.1 F 86 18 126/65 99 03/18/17 12:16 03/18/17 12:16 03/18/17 12:16 03/18/17 12:16 03/18/17 12:16 Intake and Output: 03/18/17 03/18/17 11:59 23:59 Intake Total 650 Balance 650 - Medications Medications: Current Medications Albuterol Sulfate (Albuterol 0.083% Inhal Mecca (2.5 Mg/3 Ml) Ud) 2.5 mg INH RQ4 PRN PRN Reason: Shortness of Breath Albuterol Sulfate (Albuterol 0.083% Inhal Mecca (2.5 Mg/3 Ml) Ud) 2.5 mg INH RQID [facility] Last Admin: 03/18/17 11:28 Dose: 2.5 mg Benzocaine/Menthol (Cepacol Sore Throat) 1 emiliano PO Q2 PRN PRN Reason: Sore Throat Last Admin: 03/18/17 09:14 Dose: 1 emiliano Benzonatate (Tessalon Perles) 200 mg PO Q8H [facility] Last Admin: 03/18/17 09:15 Dose: 200 mg Enoxaparin Sodium (Lovenox) 40 mg SC DAILY [facility] PRN Reason: Protocol Last Admin: 03/18/17 09:15 Dose: 40 mg Fluticasone Propionate (Flonase) 2 spr KOFFI DAILY [facility] Last Admin: 03/18/17 09:15 Dose: 2 spr Azithromycin 500 mg/ Sodium (Chloride) 250 mls @ 250 mls/hr IVPB DAILY [facility] Last Admin: 03/18/17 09:14 Dose: 250 mls/hr Ceftriaxone Sodium 1 gm/ (Sodium Chloride) 100 mls @ 100 mls/hr IVPB DAILY [facility] Last Admin: 03/18/17 09:13 Dose: 100 mls/hr Ibuprofen (Motrin Tab) 600 mg PO Q6 PRN PRN Reason: Headache Last Admin: 03/17/17 14:57 Dose: 600 mg Loratadine (Claritin) 10 mg PO DAILY [facility] Pantoprazole Sodium (Protonix Inj) 40 mg IVP DAILY [facility] Last Admin: 03/18/17 09:16 Dose: 40 mg - Labs Labs: 03/17/17 05:20 03/17/17 05:20 PT 10.4 Seconds (9.8-13.1) 03/16/17 13:40 INR 1.0 (0.9-1.2) 03/16/17 13:40 APTT 27.9 Seconds (25.6-37.1) 03/16/17 13:40 - Constitutional Appears: Non-toxic - Head Exam Head Exam: ATRAUMATIC, NORMAL INSPECTION, NORMOCEPHALIC - Eye Exam Eye Exam: Normal appearance - Respiratory Exam Respiratory Exam: Decreased Breath Sounds - Cardiovascular Exam Cardiovascular Exam: REGULAR RHYTHM, +S1, +S2 - GI/Abdominal Exam GI & Abdominal Exam: Soft, Normal Bowel Sounds - Neurological Exam Neurological Exam: Alert, Awake, Oriented x3 - Psychiatric Exam Psychiatric exam: Anxious - Skin Skin Exam: Normal Color Assessment and Plan (1) Bronchospasm with bronchitis, acute Status: Acute (2) Pneumonia Status: Suspected (3) Upper airway cough syndrome Status: Acute (4) Recurrent maxillary sinusitis Status: Chronic (5) Anxiety Status: Acute (6) Hyperproteinemia Status: Acute (7) PAH (pulmonary artery hypertension) Status: Ruled-out - Assessment and Plan (Free Text) Plan: Continue present rx. If TB test negative will dc Patient home . The ENT w/u can be done as OP.
--- NOTE | 2017-03-18 17:13 | CP.PCM.PN ---
Subjective - Date & Time of Evaluation Date of Evaluation: 03/18/17 Time of Evaluation: 09:00 - Subjective Subjective: improving await AFB smears denies fever or chest pain ++ headache/ sinus congestion ENT eval pending Objective - Vital Signs/Intake and Output Vital Signs (last 24 hours): Temp Pulse Resp BP Pulse Ox 98.7 F 90 18 136/61 100 03/18/17 16:08 03/18/17 16:08 03/18/17 16:08 03/18/17 16:08 03/18/17 16:08 Intake and Output: 03/18/17 03/18/17 06:59 18:59 Intake Total 650 Balance 650 - Medications Medications: Current Medications Albuterol Sulfate (Albuterol 0.083% Inhal Mecca (2.5 Mg/3 Ml) Ud) 2.5 mg INH RQ4 PRN PRN Reason: Shortness of Breath Albuterol Sulfate (Albuterol 0.083% Inhal Mecca (2.5 Mg/3 Ml) Ud) 2.5 mg INH RQID [facility] Last Admin: 03/18/17 15:37 Dose: 2.5 mg Benzocaine/Menthol (Cepacol Sore Throat) 1 emiliano PO Q2 PRN PRN Reason: Sore Throat Last Admin: 03/18/17 09:14 Dose: 1 emiliano Benzonatate (Tessalon Perles) 200 mg PO Q8H [facility] Last Admin: 03/18/17 09:15 Dose: 200 mg Enoxaparin Sodium (Lovenox) 40 mg SC DAILY [facility] PRN Reason: Protocol Last Admin: 03/18/17 09:15 Dose: 40 mg Fluticasone Propionate (Flonase) 2 spr KOFFI DAILY [facility] Last Admin: 03/18/17 09:15 Dose: 2 spr Azithromycin 500 mg/ Sodium (Chloride) 250 mls @ 250 mls/hr IVPB DAILY [facility] Last Admin: 03/18/17 09:14 Dose: 250 mls/hr Ceftriaxone Sodium 1 gm/ (Sodium Chloride) 100 mls @ 100 mls/hr IVPB DAILY [facility] Last Admin: 03/18/17 09:13 Dose: 100 mls/hr Ibuprofen (Motrin Tab) 600 mg PO Q6 PRN PRN Reason: Headache Last Admin: 03/18/17 17:03 Dose: 600 mg Loratadine (Claritin) 10 mg PO DAILY [facility] Last Admin: 03/18/17 17:02 Dose: 10 mg Pantoprazole Sodium (Protonix Inj) 40 mg IVP DAILY [facility] Last Admin: 03/18/17 09:16 Dose: 40 mg - Labs Labs: 03/17/17 05:20 03/17/17 05:20 PT 10.4 Seconds (9.8-13.1) 03/16/17 13:40 INR 1.0 (0.9-1.2) 03/16/17 13:40 APTT 27.9 Seconds (25.6-37.1) 03/16/17 13:40 - Constitutional Appears: Non-toxic, Chronically Ill - Head Exam Head Exam: NORMOCEPHALIC - Eye Exam Eye Exam: PERRL - ENT Exam ENT Exam: Mucous Membranes Dry - Neck Exam Neck Exam: absent: Lymphadenopathy - Respiratory Exam Respiratory Exam: Decreased Breath Sounds, Rhonchi - Cardiovascular Exam Cardiovascular Exam: REGULAR RHYTHM, +S1, +S2 - GI/Abdominal Exam GI & Abdominal Exam: Distended, Soft. absent: Tenderness - Rectal Exam Rectal Exam: Deferred - Exam Exam: NORMAL INSPECTION - Extremities Exam Extremities Exam: absent: Calf Tenderness, Pedal Edema - Back Exam Back Exam: absent: CVA tenderness (L), CVA tenderness (R), paraspinal tenderness - Neurological Exam Neurological Exam: Alert, Awake, Oriented x3 Assessment and Plan (1) Bronchospasm with bronchitis, acute Status: Acute (2) Upper airway cough syndrome Status: Acute (3) Recurrent maxillary sinusitis Status: Chronic (4) Pneumonia Status: Suspected - Assessment and Plan (Free Text) Assessment: cont rx await AFB smears and ENT eval
[2017-03-19 06:09] LABS: CREATININE, 24 HOUR URINE 1.94 g/24 h (0.63-2.50); CREATININE, URINE 1.62 g/L
[2017-03-19] MEDS: Albuterol 0.083% Inhal Sol (2.5 mg/3 mL) UD INH SCH ×3 (07:51→15:56)
--- NOTE | 2017-03-19 08:51 | CP.PCM.PN ---
Subjective - Date & Time of Evaluation Date of Evaluation: 03/19/17 Time of Evaluation: 08:45 - Subjective Subjective: ONE SPUTUM IS AFB SMEAR NEGATIVE. Another sputum AFB is pending. A third specimen was collected this morning. Sputum for routine culture is still pending as well. Vital signs have been stable, he has remained afebrile, NO night sweats. His followup chest x-ray was negative as well. All serologies, Ab and Ag testing is negative. His antibiotics can be changed to PO while awaiting AFB smears. Attempted to contact lab this morning regarding the second AFB smear; no answer. Objective - Vital Signs/Intake and Output Vital Signs (last 24 hours): Temp Pulse Resp BP Pulse Ox 98.2 F 81 20 120/65 99 03/19/17 07:40 03/19/17 07:40 03/19/17 07:40 03/19/17 07:40 03/19/17 07:40 - Medications Medications: Current Medications Albuterol Sulfate (Albuterol 0.083% Inhal [place] (2.5 Mg/3 Ml) Ud) 2.5 mg INH RQ4 PRN PRN Reason: Shortness of Breath Albuterol Sulfate (Albuterol 0.083% Inhal [place] (2.5 Mg/3 Ml) Ud) 2.5 mg INH RQID [facility] Last Admin: 03/19/17 07:51 Dose: 2.5 mg Benzocaine/Menthol (Cepacol Sore Throat) 1 emiliano PO Q2 PRN PRN Reason: Sore Throat Last Admin: 03/18/17 09:14 Dose: 1 emiliano Benzonatate (Tessalon Perles) 200 mg PO Q8H [facility] Last Admin: 03/19/17 01:46 Dose: 200 mg Enoxaparin Sodium (Lovenox) 40 mg SC DAILY [facility] PRN Reason: Protocol Last Admin: 03/18/17 09:15 Dose: 40 mg Fluticasone Propionate (Flonase) 2 spr KOFFI DAILY [facility] Last Admin: 03/18/17 09:15 Dose: 2 spr Azithromycin 500 mg/ Sodium (Chloride) 250 mls @ 250 mls/hr IVPB DAILY [facility] Last Admin: 03/18/17 09:14 Dose: 250 mls/hr Ceftriaxone Sodium 1 gm/ (Sodium Chloride) 100 mls @ 100 mls/hr IVPB DAILY [facility] Last Admin: 03/18/17 09:13 Dose: 100 mls/hr Ibuprofen (Motrin Tab) 600 mg PO Q6 PRN PRN Reason: Headache Last Admin: 03/18/17 17:03 Dose: 600 mg Loratadine (Claritin) 10 mg PO DAILY [facility] Last Admin: 03/18/17 17:02 Dose: 10 mg Pantoprazole Sodium (Protonix Inj) 40 mg IVP DAILY [facility] Last Admin: 03/18/17 09:16 Dose: 40 mg - Labs Labs: 03/17/17 05:20 03/17/17 05:20 PT 10.4 Seconds (9.8-13.1) 03/16/17 13:40 INR 1.0 (0.9-1.2) 03/16/17 13:40 APTT 27.9 Seconds (25.6-37.1) 03/16/17 13:40 Assessment and Plan (1) Bronchospasm with bronchitis, acute Status: Acute (2) Recurrent maxillary sinusitis Status: Chronic (3) Upper airway cough syndrome Status: Acute
[2017-03-19] MEDS: Azithromycin 500 MG in Sodium Chloride 0.9% 250 ML IVPB SCH (10:20)
[2017-03-19] MEDS: Enoxaparin 40 mg Syringe SC SCH (10:21)
[2017-03-19 11:54] LABS: 18 KD (IGG) BAND Nonreactive; 23 KD (IGG) BAND Nonreactive; 23 KD (IGM) BAND Nonreactive; 28 KD (IGG) BAND Nonreactive; 30 KD (IGG) BAND Nonreactive; 39 KD (IGG) BAND Nonreactive; 39 KD (IGM) BAND Nonreactive; 41 KD (IGG) BAND Reactive; 41 KD (IGM) BAND Nonreactive; 45 KD (IGG) BAND Nonreactive; 58 KD (IGG) BAND Nonreactive; 66 KD (IGG) BAND Nonreactive; 93 KD (IGG) BAND Nonreactive; LYME DISEASE INTERP (IGG) Negative (Negative)
[2017-03-19 14:00] LABS: A.TENUIS(M6)IGE <0.10 kU/L (<0.10); COTTONWOOD (T14) IGE <0.10 kU/L (<0.10); D.FARINAE (D2) IGE 3.49 kU/L (<0.10); MAPLE (BOX ELDER) (T1)IGE 1.05 kU/L (<0.10); MOUSE URINE PROTEINS (e72) IgE <0.10 kU/L (<0.10); OAK (T7) IGE 0.31 kU/L (<0.10); P.NOTATUM (M1) IGE <0.10 kU/L (<0.10); SHEEP SORREL (W18) IGE <0.10 kU/L (<0.10); WALNUT TREE (T10) IGE 0.36 kU/L (<0.10); WHITE ASH (T15) IGE <0.10 kU/L (<0.10)
--- NOTE | 2017-03-19 14:03 | CP.PCM.PN ---
Subjective - Date & Time of Evaluation Date of Evaluation: 03/19/17 Time of Evaluation: 06:00 - Subjective Subjective: afb neg x 1 Objective - Vital Signs/Intake and Output Vital Signs (last 24 hours): Temp Pulse Resp BP Pulse Ox 98.2 F 81 20 120/65 99 03/19/17 07:40 03/19/17 07:40 03/19/17 07:40 03/19/17 07:40 03/19/17 07:40 - Medications Medications: Current Medications Albuterol Sulfate (Albuterol 0.083% Inhal [place] (2.5 Mg/3 Ml) Ud) 2.5 mg INH RQ4 PRN PRN Reason: Shortness of Breath Albuterol Sulfate (Albuterol 0.083% Inhal [place] (2.5 Mg/3 Ml) Ud) 2.5 mg INH RQID [facility] Last Admin: 03/19/17 11:56 Dose: 2.5 mg Benzocaine/Menthol (Cepacol Sore Throat) 1 emiliano PO Q2 PRN PRN Reason: Sore Throat Last Admin: 03/18/17 09:14 Dose: 1 emiliano Benzonatate (Tessalon Perles) 200 mg PO Q8H [facility] Last Admin: 03/19/17 10:20 Dose: 200 mg Enoxaparin Sodium (Lovenox) 40 mg SC DAILY [facility] PRN Reason: Protocol Last Admin: 03/19/17 10:21 Dose: 40 mg Fluticasone Propionate (Flonase) 2 spr KOFFI DAILY [facility] Last Admin: 03/19/17 10:19 Dose: 2 spr Azithromycin 500 mg/ Sodium (Chloride) 250 mls @ 250 mls/hr IVPB DAILY [facility] Last Admin: 03/19/17 10:20 Dose: 250 mls/hr Ceftriaxone Sodium 1 gm/ (Sodium Chloride) 100 mls @ 100 mls/hr IVPB DAILY [facility] Last Admin: 03/19/17 10:20 Dose: 100 mls/hr Ibuprofen (Motrin Tab) 600 mg PO Q6 PRN PRN Reason: Headache Last Admin: 03/18/17 17:03 Dose: 600 mg Loratadine (Claritin) 10 mg PO DAILY [facility] Last Admin: 03/19/17 10:21 Dose: 10 mg Pantoprazole Sodium (Protonix Inj) 40 mg IVP DAILY [facility] Last Admin: 03/19/17 10:19 Dose: 40 mg - Labs Labs: 03/17/17 05:20 03/17/17 05:20 PT 10.4 Seconds (9.8-13.1) 03/16/17 13:40 INR 1.0 (0.9-1.2) 03/16/17 13:40 APTT 27.9 Seconds (25.6-37.1) 03/16/17 13:40 - Constitutional Appears: Non-toxic, Chronically Ill - Head Exam Head Exam: NORMOCEPHALIC - Eye Exam Eye Exam: absent: Scleral icterus - ENT Exam ENT Exam: Mucous Membranes Dry - Neck Exam Neck Exam: absent: Lymphadenopathy - Respiratory Exam Respiratory Exam: Decreased Breath Sounds - GI/Abdominal Exam GI & Abdominal Exam: Distended, Soft - Rectal Exam Rectal Exam: Deferred - Exam Exam: NORMAL INSPECTION - Extremities Exam Extremities Exam: absent: Pedal Edema - Back Exam Back Exam: absent: CVA tenderness (L), CVA tenderness (R) - Neurological Exam Neurological Exam: Alert, Awake, Oriented x3 Assessment and Plan (1) Bronchospasm with bronchitis, acute Status: Acute (2) Upper airway cough syndrome Status: Acute (3) Recurrent maxillary sinusitis Status: Chronic (4) Pneumonia Status: Suspected
[2017-03-19 16:51] VITALS: BP 131/75; PULSE 85; RESP 18; TEMP 98.3; O2SAT 100
--- NOTE | 2017-03-19 17:14 | CP.PCM.DIS ---
Provider - Provider Date of Admission: 03/16/17 15:35 Attending physician: Javy Brennan MD Primary care physician: Javy Brennan MD Time Spent in preparation of Discharge (in minutes): 30 Diagnosis - Discharge Diagnosis (1) Bronchospasm with bronchitis, acute Status: Acute Priority: High (2) Pneumonia Status: Suspected (3) Upper airway cough syndrome Status: Acute Priority: High (4) Recurrent maxillary sinusitis Status: Chronic Priority: High (5) Anxiety Status: Acute (6) Hyperproteinemia Status: Acute (7) PAH (pulmonary artery hypertension) Status: Ruled-out Hospital Course - Lab Results Lab Results: Micro Results 03/18/17 07:52 Other: Please Indicate Mycobacterial Culture - Preliminary 03/17/17 09:15 Sputum Gram Stain - Final 03/17/17 09:15 Sputum Sputum Culture - Final NORMAL ORAL MARGARITO 03/16/17 16:30 Blood Blood Culture - Preliminary NO GROWTH AFTER 48 HOURS 03/17/17 09:15 Other: Please Indicate Mycobacterial Culture - Preliminary Most Recent Lab Values WBC 5.5 K/uL (4.8-10.8) 03/17/17 05:20 RBC 4.93 Mil/uL (4.40-5.90) 03/17/17 05:20 Hgb 14.8 g/dL (12.0-18.0) 03/17/17 05:20 Hct 44.3 % (35.0-51.0) 03/17/17 05:20 MCV 90.0 fl (80.0-94.0) 03/17/17 05:20 MCH 30.0 pg (27.0-31.0) 03/17/17 05:20 MCHC 33.3 g/dL (33.0-37.0) 03/17/17 05:20 RDW 12.6 % (11.5-14.5) 03/17/17 05:20 Plt Count 213 K/uL (130-400) 03/17/17 05:20 MPV 7.5 fl (7.2-11.7) 03/16/17 13:40 Neut % (Auto) 72.9 % (50.0-75.0) 03/16/17 13:40 Lymph % (Auto) 16.0 % (20.0-40.0) L 03/16/17 13:40 [place] % (Auto) 6.1 % (0.0-10.0) 03/16/17 13:40 Eos % (Auto) 4.1 % (0.0-4.0) H 03/16/17 13:40 Baso % (Auto) 0.9 % (0.0-2.0) 03/16/17 13:40 Neut # 4.8 K/uL (1.8-7.0) 03/16/17 13:40 Lymph # 1.1 K/uL (1.0-4.3) 03/16/17 13:40 [place] # 0.4 K/uL (0.0-0.8) 03/16/17 13:40 Eos # 0.3 K/uL (0.0-0.7) 03/16/17 13:40 Baso # 0.1 K/uL (0.0-0.2) 03/16/17 13:40 PT 10.4 Seconds (9.8-13.1) 03/16/17 13:40 INR 1.0 (0.9-1.2) 03/16/17 13:40 APTT 27.9 Seconds (25.6-37.1) 03/16/17 13:40 D-Dimer, Quantitative 219 ng/mlDDU (0-230) 03/16/17 13:40 Sodium 139 mmol/l (132-148) 03/17/17 05:20 Potassium 4.0 MMOL/L (3.6-5.0) 03/17/17 05:20 Chloride 101 mmol/L (98-107) 03/17/17 05:20 Carbon Dioxide 27 mmol/L (22-30) 03/17/17 05:20 Anion Gap 16 (10-20) 03/17/17 05:20 BUN 23 mg/dl (9-20) H 03/17/17 05:20 Creatinine 0.8 mg/dL (0.8-1.5) 03/17/17 05:20 Est GFR ( Amer) > 60 03/17/17 05:20 Est GFR (Non-Af Amer) > 60 03/17/17 05:20 Random Glucose 107 mg/dL (75-110) 03/17/17 05:20 Calcium 9.9 mg/dL (8.4-10.2) 03/17/17 05:20 Magnesium 2.0 MG/DL (1.6-2.3) 03/16/17 13:40 Total Bilirubin 0.7 mg/dl (0.2-1.3) 03/16/17 13:40 AST 69 U/L (17-59) H 03/16/17 13:40 ALT 40 U/L (21-72) 03/16/17 13:40 Alkaline Phosphatase 56 U/L (38-126) 03/16/17 13:40 Troponin I < 0.0120 ng/mL (0.00-0.120) 03/16/17 13:40 NT-Pro-B Natriuret Pep < 11.1 pg/ml (0-450) 03/16/17 13:40 Total Protein 8.7 G/DL (6.3-8.2) H 03/16/17 13:40 Albumin 4.9 g/dL (3.5-5.0) 03/16/17 13:40 Globulin 3.8 gm/dL (2.2-3.9) 03/16/17 13:40 Albumin/Globulin Ratio 1.3 (1.0-2.1) 03/16/17 13:40 TSH 3rd Generation 2.07 mIU/ML (0.46-4.68) 03/16/17 20:05 A. tenuis Allergen IgE <0.10 kU/L (<0.10) 03/18/17 10:00 A. tenuis Conven Class 0 03/18/17 10:00 Aspergillus fumigatus <0.10 kU/L (<0.10) 03/18/17 10:00 A. fumigatus ASM Class 0 03/18/17 10:00 Cladosporium herbarum <0.10 kU/L (<0.10) 03/18/17 10:00 C. herbarum ASM Class 0 03/18/17 10:00 D. farinae IgE Class 2 H 03/18/17 10:00 D. farinae Allrgen IgE 3.49 kU/L (<0.10) H 03/18/17 10:00 D. pteronyssinus Class 2 H 03/18/17 10:00 D. pteronyssinus IgE 2.75 kU/L (<0.10) H 03/18/17 10:00 Penicillium notatum <0.10 kU/L (<0.10) 03/18/17 10:00 P, notatum ASM Class 0 03/18/17 10:00 Birch Maud Class 1 H 03/18/17 10:00 [place] Tree Allrg <0.10 kU/L (<0.10) 03/18/17 10:00 [place] Conven Cls 0 03/18/17 10:00 [place] Tree Allergen <0.10 kU/L (<0.10) 03/18/17 10:00 Elm Maud Class 0 03/18/17 10:00 Maple ([place]) Allg 1.05 kU/L (<0.10) H 03/18/17 10:00 [place] Clss 2 H 03/18/17 10:00 [place] Tree Allerg <0.10 kU/L (<0.10) 03/18/17 10:00 [place] Maud Class 0 03/18/17 10:00 [place] Maud Class 0 03/18/17 10:00 [place] Tree Allergen 0.31 kU/L (<0.10) H 03/18/17 10:00 [place] Tree ASM Class 0/1 H 03/18/17 10:00 [place] Allergen 0.51 kU/L (<0.10) H 03/18/17 10:00 [place] Tree Allergen <0.10 kU/L (<0.10) 03/18/17 10:00 [place] Maud Class 0 03/18/17 10:00 [place] Tree Allergen 0.36 kU/L (<0.10) H 03/18/17 10:00 [place] Maud Class 1 H 03/18/17 10:00 [place] Tree Allerg <0.10 kU/L (<0.10) 03/18/17 10:00 [place] Maud Clss 0 03/18/17 10:00 [place] Allergen <0.10 kU/L (<0.10) 03/18/17 10:00 [place] Grass Allergen <0.10 kU/L (<0.10) 03/18/17 10:00 [place] Grass Maud Cl 0 03/18/17 10:00 [place] Grass Allergen <0.10 kU/L (<0.10) 03/18/17 10:00 [place] Grass Cnvnt Cls 0 03/18/17 10:00 Common Pigweed Allerg <0.10 kU/L (<0.10) 03/18/17 10:00 Common Ragweed Allergen <0.10 kU/L (<0.10) 03/18/17 10:00 Comm Ragweed Cnvnt Cls 0 03/18/17 10:00 Mugwort Allergen <0.10 kU/L (<0.10) 03/18/17 10:00 Mugwort Conventional 0 03/18/17 10:00 Pigweed Conventional 0 03/18/17 10:[address] Allergen <0.10 kU/L (<0.10) 03/18/17 10:[address] Conven Cls 0 03/18/17 10:00 Cat Dander Allergen 0.25 kU/L (<0.10) H 03/18/17 10:00 Cat Dander Maud Class 0/1 H 03/18/17 10:00 Dog Dander IgE Allergen 0.31 kU/L (<0.10) H 03/18/17 10:00 Dog Dander Maud Cls 0/1 H 03/18/17 10:00 Mouse Urine Allergen <0.10 kU/L (<0.10) 03/18/17 10:00 Mouse Urine Conven Clss 0 03/18/17 10:00 Cockroach Allergen <0.10 kU/L (<0.10) 03/18/17 10:00 Cockroach Maud Clss 0 03/18/17 10:00 Urine Creatinine 1.62 g/L 03/16/17 08:00 Ur Creatinine 24 Hour 1.94 g/24 h (0.63-2.50) 03/16/17 08:00 Ur Total Protein 24 Hr 138 mg/24 h (<150) 03/16/17 08:00 Protein/Creat Ratio 24h 71 mg/g creat (</=84) 03/16/17 08:00 Urine Total Protein 115 mg/L (50-250) 03/16/17 08:00 Urine Opiates Screen Negative (NEGATIVE) 03/16/17 22:48 Urine Methadone Screen Negative (NEGATIVE) 03/16/17 22:48 Ur Barbiturates Screen Negative (NEGATIVE) 03/16/17 22:48 Ur Phencyclidine Scrn Negative (NEGATIVE) 03/16/17 22:48 Ur Amphetamines Screen Negative (NEGATIVE) 03/16/17 22:48 U Benzodiazepines Scrn Negative (NEGATIVE) 03/16/17 22:48 U Oth Cocaine Metabols Negative (NEGATIVE) 03/16/17 22:48 U Cannabinoids Screen Negative (NEGATIVE) 03/16/17 22:48 IgE 86 kU/L (<tm=568) 03/18/17 10:00 Rheumatoid Factor IgG 5 U (<=6) 03/16/17 20:45 Rheumatoid Factor IgA <5 U (<=6) 03/16/17 20:45 Rheumatoid Factor IgM <5 U (<=6) 03/16/17 20:45 OJ Screen Negative (Negative) 03/17/17 05:20 RPR Nonreactive (NONREACTIVE) 03/16/17 20:45 Lyme IgG 18 kDa Band Nonreactive 03/17/17 12:30 Lyme IgG 23 kDa Band Nonreactive 03/17/17 12:30 Lyme IgG 28 kDa Band Nonreactive 03/17/17 12:30 Lyme IgG 30 kDa Band Nonreactive 03/17/17 12:30 Lyme IgG 39 kDa Band Nonreactive 03/17/17 12:30 Lyme IgG 41 kDa Band Reactive H 03/17/17 12:30 Lyme IgG 45 kDa Band Nonreactive 03/17/17 12:30 Lyme IgG 58 kDa Band Nonreactive 03/17/17 12:30 Lyme IgG 66 kDa Band Nonreactive 03/17/17 12:30 Lyme IgG 93 kDa Band Nonreactive 03/17/17 12:30 Lyme IgG W Blot Interp Negative (Negative) 03/17/17 12:30 Lyme IgM 23 kDa Band Nonreactive 03/17/17 12:30 Lyme IgM 39 kDa Band Nonreactive 03/17/17 12:30 Lyme IgM 41 kDa Band Nonreactive 03/17/17 12:30 Lyme IgM W Blot Interp Negative (Negative) 03/17/17 12:30 Hepatitis A IgM Ab Negative (NEGATIVE) 03/17/17 05:20 Hep Bs Antigen Negative (NEGATIVE) 03/17/17 05:20 Hep B Core IgM Ab Negative (NEGATIVE) 03/17/17 05:20 Hepatitis C Antibody Negative (NEGATIVE) 03/17/17 05:20 HIV-1 Ab Rapid Screen Non reactive (NON REAC) 03/16/17 20:45 Influenza Typ A,B (EIA) Negative for flu a/b (NEGATIVE) 03/17/17 18:36 Ur L.pneumophila Ag Negative (NEGATIVE) 03/18/17 08:00 Mycoplasma pneumon IgG 1.92 (<=0.90) H 03/16/17 20:05 Mycoplasma pneumon IgM 346 U/mL (<770) 03/16/17 20:05 - Hospital Course Hospital Course: Patient is 31 y/o gentleman presented in ER with the hx of cough, chills, fever with night sweats,productive cough x 3 weeks. nausea, vomiting. He was treated with serval antibx and he was seen as OP by several physicians. His condition did not improve on the present broad spectrum antibx. He still c/o severe cough and dyspnea. sore throat, rhinorrhea, headaches, patient anxious because no improvement with rx and actually. In ER an initial CXR reveled a possible cavitary lesion. Further radiology studies were normal. The liver enzymes were elevated and the serum protein elevated. A test for TB was performed and was negative. 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 It was necessary to r/o TB for his initial clinical presentation. An ECHO was normal. Patient stable for DC will follow as OP. Discharge Exam - Head Exam Head Exam: NORMOCEPHALIC - Neck Exam Neck exam: Full Rom - Respiratory Exam Respiratory Exam: Clear to PA & Lateral - Cardiovascular Exam Cardiovascular Exam: REGULAR RHYTHM, +S1, +S2 - GI/Abdominal Exam GI & Abdominal Exam: Normal Bowel Sounds - Extremities Exam Extremities exam: normal inspection - Neurological Exam Neurological exam: Alert, CN II-XII Intact, Normal Gait, Oriented x3, Reflexes Normal - Psychiatric Exam Psychiatric exam: Normal Affect - Skin Skin Exam: Normal Color Discharge Plan - Discharge Medications Prescriptions: Amoxicillin/Clavulanate [Augmentin 875 MG-125 MG] 1 tab PO BID #20 tab Lactobacillus Acidophilus [Bacid Acidophilus] 1 cap PO BID #60 cap Desloratadine [Clarinex] 5 mg PO DAILY #30 tab Fluticasone Nasal [Flonase] 1 spr NS BID #1 spr Azithromycin [Z-Wade] 250 mg PO DAILY #6 tab - Follow Up Plan Condition: GOOD Disposition: HOME/ ROUTINE Instructions: Community Acquired Pneumonia (DC), Bronchospasm (DC) Referrals: César Hill MD [Staff Provider] - Javy Brennan MD [Primary Care Provider] -
--- NOTE | 2017-03-19 18:25 | CARD ---
APPROVED REPORT EKG Measurement Heart [id number] <Conclusion> Normal sinus rhythm with sinus arrhythmia Possible Left atrial enlargement Borderline ECG
[2017-03-19 23:42] LABS: TOTAL PROTEIN, SERUM 7.6 g/dL (6.1-8.1)
[2017-03-22 14:42] LABS: GAMMA GLOBULIN 23.6 Relative %
[2017-03-23 04:21] LABS: BETA 1 GLOBULIN 0.4 g/dL (0.4-0.6); BETA 2 GLOBULIN 0.5 g/dL (0.2-0.5); GAMMA GLOBULIN 1.6 g/dL (0.8-1.7)
== END 2017-03-19 18:16 | disposition home or self-care (01) | DRG 202 ==
LOC: H.ER 12:40 → H.ERHOLD 15:35 → H.TEL 19:06 → H.MEDSURG1 03-18 13:34
PROVIDERS: ADMIT Internal Medicine; ATTEND Internal Medicine
PROC: 3E0F7GC Introduction of Other Therapeutic Substance into Respiratory Tract, Via Natural or Artificial Opening (ICD-10-PCS; principal; 2017-03-17)
DX: J20.9 Acute bronchitis, unspecified (principal); J18.9 Pneumonia, unspecified organism; I27.2 Other secondary pulmonary hypertension; E88.09 Other disorders of plasma-protein metabolism, not elsewhere classified; F41.9 Anxiety disorder, unspecified; J32.0 Chronic maxillary sinusitis; J45.909 Unspecified asthma, uncomplicated; Z78.9 Other specified health status; J40 Bronchitis, not specified as acute or chronic; R11.2 Nausea with vomiting, unspecified; R61 Generalized hyperhidrosis; J02.9 Acute pharyngitis, unspecified; R63.4 Abnormal weight loss; R74.8 Abnormal levels of other serum enzymes